=== PATIENT | male | born 1940 | race Caucasian/White ===

== ENCOUNTER → 2018-11-01 13:43 | Outpatient (CLI) | payer MEDICARE, OTHER | END | disposition home or self-care (01) | LOC: D.RAD 13:43 → D.RT 15:30 | PROVIDERS: ATTEND Internal Medicine Pulmonary Disease | DX: J44.9 Chronic obstructive pulmonary disease, unspecified (principal) ==

== ENCOUNTER → 2018-11-24 12:57 | Outpatient (CLI) | payer MEDICARE, OTHER ==
--- NOTE | 2018-11-28 13:03 | EC ---
PATIENT:BASHIR BAEZ DATE OF SERVICE: 11/24/18 SEX: M MEDICAL RECORD: [id number] DATE OF : 42 LOCATION:[facility] AGE OF PATIENT: 78 ADMISSION DATE: 11/24/18 REFERRING PHYSICIAN: INTERPRETING PHYSICIAN: HODAN MORALES MD ECHOCARDIOGRAM REPORT ECHO CHARGES 4 ECHO COMPLETE Date: 11/24/18 CLINICAL DIAGNOSIS: MITRAL REGURG ECHOCARDIOGRAPHIC MEASUREMENTS (adult normal given) AC root (d.<3.7cm) 4.7 cm LV Septum d (<1.2 cm> 1.7 cm Valve Excursion 2.2 cm LV Septum (systole) 1.8 cm Left Atria (s.<4.0cm> 3.9 cm LVPW d(<1.2cm) 1.7 cm RV (d.<2.3cm) 4.7 cm LVPW (sytole) 2.0 cm LV diastole(<5.6CM) 5.4 cm MV E-F(>70mm/sec) cm LV systole 3.9 cm LVOT Diameter 2.3 cm MV exc.(>10mm) 0.80 cm Est.ejection fraction (50-75%) % DOPPLER: LVIT cm/sec A 40.0 cm/sec E 37.0 cm/sec LA cm/sec RVSP 30 mmHg LVOT 97 cm/sec AOP1/2T m/s Asc. Ao 122 cm/sec RVOT cm/sec RA cm/sec PA cm/sec AV Gradient Peak 6.00 mmHg AV Mean 3.27 mmHg AV Area 3.8 cm MV Gradient Peak 3.84 mmHg MV Mean 1.19 mmHg MV Area cm COMMENTS: Stitch Bonder Machine Operator Helper: 2 ANKIT ROLLINS Shaper Hand: 3 Dr. Rios TAPE# PACS Pericardial Effusion N DATE OF SERVICE: Adequate 2D, color flow and spectral Doppler, M-mode. LVH is present. LV internal dimensions are normal. Wall motion is normal. EF is greater than or equal to 55%. Aortic valve is tricuspid. No evidence of stenosis by Doppler interrogation. Left atrium is normal at 3.9 cm. Mitral valve shows no prolapse. Trace MR. Right-sided chambers are grossly normal. Mild TR. ECHOCARDIOGRAM REPORT [id number] BASHIR BAEZ TRANSINT:[id number] Voice Confirmation ID: [id number] DOCUMENT ID: [id number] HODAN MORALES MD at 1303 CC: [id number] DICTATION DATE: 11/25/18 1033 GRAPHIC ART TECHNICIAN: 11/25/18 1120 DEP CLI 11/24/18 [facility] [address] [place] [address]
== END | disposition home or self-care (01) ==
LOC: D.HCCECHO 09:27 → D.HCCARDIO 13:00
PROVIDERS: ATTEND Internal Medicine Interventional Cardiology
DX: R09.89 Other specified symptoms and signs involving the circulatory and respiratory systems (principal)

== ENCOUNTER 2020-05-12 09:50 | Outpatient (CLI) | payer MEDICARE, OTHER ==
[~2020-05-12] VITALS: Ht 190.5 cm; Wt 94.5 kg
[~2020-05-12 09:50] MED LIST: ASCORBIC ACID500 MG PO; BUSPAR 15 MG TA15 MG PO; CELEXA40 MG PO; FLOMAX0.4 MG PO; MELATONIN 3 MG1 TAB PO; NITROQUICK0.4 MG SL; PLAVIX75 MG PO; REMERON30 MG PO; SYMBICORT 16010.2 GM INH; TOPROL XL25 MG PO; TYLENOL ARTHRI650 MG PO; UROXATRAL10 MG PO
[2020-05-12] MEDS ORDERED: COZAAR25 MG PO (11:01)
[2020-05-12 11:12] VITALS: BP 149/94; Ht 190.5 cm; Wt 94.5 kg
--- NOTE | 2020-05-12 18:00 | NUR ---
PATIENT TOLERATING INFUSION WITHOUT NOTED SIDE EFFECTS. PATIENT WALKING IN HALLWAY, DENIES COMPLAINTS. RIGHT WRIST PIV INFUSING SODIUM BICARB IN NS SOLUTION AT 95 CC/HR. PATIENT EXPRESSES IMPATIENCE TO BE DISCHARGED HOME
--- NOTE | 2020-05-12 18:30 | NUR ---
INFUSION COMPLETE PER ORDERS, RIGHT WRIST PIV DC'D WITH TIP INTACT. DISCHARGE INSTRUCTIONS REVIEWED WITH PATIENT, DISCHARGED HOME VIA WHEELCHAIR TO PRIVATE VEHICLE WITH SPOUSE AT 1834
== END 2020-05-12 18:34 | disposition home or self-care (01) ==
LOC: D.OPS 09:50 → D.CT 11:00 → D.OPS 18:34
PROVIDERS: ATTEND Thoracic Surgery (Cardiothoracic Vascular Surgery)
DX: I71.4 Abdominal aortic aneurysm, without rupture (principal)

== ENCOUNTER 2020-05-20 08:00 | Outpatient (CLI) | payer MEDICARE, OTHER ==
[2020-05-12 11:12] VITALS: BMI 26.0
[~2020-05-20 08:00] MED LIST changes: +COZAAR25 MG PO
[2020-05-20] MEDS ORDERED: BAYER CHEWABLE81 MG PO (14:48)
--- NOTE | 2020-05-20 15:06 | NUR ---
PATIENT REFUSED NIF, VC, IS. PT HEARD NURSE STATE IT WASN'T ORDERED.
[2020-05-20 16:11] LABS: HEMATOCRIT 36.9 % (42.0-54.0); HEMOGLOBIN 11.7 g/dL (13.5-17.5); LYMPHOCYTE ABS# 4.21 10x3/uL (1.32-3.57); MCH 28.4 pg (26.0-34.0); MCHC 31.7 g/dL (31.0-37.0); MCV 89.6 fL (80.0-100.0); MEAN PLATELET VOLUME 9.9 fL (7.4-10.4); NEUTROPHIL ABS# 2.74 10x3/uL (1.78-5.38); RBC 4.12 10x6/uL (4.20-6.10); RDW 19.3 % (11.5-14.5); WBC 8.4 10x3/uL (4.8-10.8)
[2020-05-20 16:16] LABS: PLATELET COUNT 253 10x3/uL (130-400)
[2020-05-20 16:20] LABS: APTT 30.5 SECONDS (22.8-39.4); INR 1.15 (0.85-1.17); PROTIME 13.6 SECONDS (11.6-15.0)
[2020-05-20 16:30] LABS: ALBUMIN 3.3 g/dL (3.4-5.0); ANION GAP 12.5 mmol/L (8-16); BILIRUBIN - TOTAL 0.28 mg/dL (0.2-1.3); CALCIUM 8.7 mg/dL (8.5-10.1); CARBON DIOXIDE 25.3 mmol/L (21.0-32.0); CREATININE - SERUM 2.2 mg/dL (0.6-1.3); POTASSIUM - SERUM 4.8 mmol/L (3.5-5.1); PROTEIN - SERUM 7.7 g/dL (6.4-8.2)
[2020-05-20 16:51] LABS: BILIRUBIN NEGATIVE (NEGATIVE); KETONE NEGATIVE (NEGATIVE); NITRITE NEGATIVE (NEGATIVE); UROBILINOGEN NORMAL mg/dL (< 2)
[2020-05-20 18:18] LABS: BASOPHILS 1 % (0-2); EOSINOPHILS 7 % (0-7); LYMPHOCYTES 44 % (15-50); MONOCYTES 13 % (2-11); NEUTROPHILS 35 % (40-80); PLATELET ESTIMATE NORMAL
== END 2020-05-20 08:01 | disposition home or self-care (01) ==
LOC: D.PAN 08:00 → EDSTATUS 05-22 11:30 → D.SDCHOLD 05-22 11:30
PROVIDERS: ATTEND Thoracic Surgery (Cardiothoracic Vascular Surgery)
DX: I71.4 Abdominal aortic aneurysm, without rupture (principal)

== ENCOUNTER → 2020-05-28 10:27 | Outpatient (CLI) | payer MEDICARE, OTHER ==
[2020-05-12 11:12] VITALS: BMI 26.0
[~2020-05-28 10:27] MED LIST changes: +BAYER CHEWABLE81 MG PO
== END | disposition home or self-care (01) ==
LOC: D.LAB 10:27
PROVIDERS: ATTEND Thoracic Surgery (Cardiothoracic Vascular Surgery)
DX: I71.4 Abdominal aortic aneurysm, without rupture (principal)

== ENCOUNTER 2020-07-23 08:31 | Inpatient (IN) | payer MEDICARE, OTHER ==
[~2020-07-23] VITALS: Ht 190.5 cm; Wt 95.8 kg
[2020-07-23] VITALS (20 sets, daily range): BP systolic 112–132; BP diastolic 68–83; BMI 24.4
--- NOTE | 2020-07-23 10:15 | NUR ---
PATIENT ARRVIED VIA WHEELCHAIR TO ROOM FROM ADMITTING, PLACED IN GOWN, VSS. HEAD TO TOE ASSSESSMENT COMPLETED. IV TO LEFT FA X 1 ATTEMPT 20 GA, WITH NS AT 100 ML/HR STARTED INFUSING.
--- NOTE | 2020-07-23 13:43 | NUR ---
LAB AT ROOM, LABS DRAWN AND SENT TO LAB. DR. DAUGHERTY AT ROOM.
--- NOTE | 2020-07-23 13:49 | NUR ---
DR. WILKINS NOTIFIED OF CONSULT. STATES WILL SEE THIS AFTERNOON.
[2020-07-23] MEDS ORDERED: PROCARDIA10 MG PO (13:54)
[2020-07-23 13:55] LABS: BASOPHILS 0.6 % (0-2); EOSINOPHILS 4.2 % (0-7); HEMATOCRIT 39.1 % (42.0-54.0); HEMOGLOBIN 12.4 g/dL (13.5-17.5); IMMATURE GRANULOCYTES 0.1 % (0-5); LYMPHOCYTES 47.5 % (15-50); MCHC 31.7 g/dL (31.0-37.0); MCV 94.4 fL (80.0-100.0); MEAN PLATELET VOLUME 10.2 fL (7.4-10.4); MONOCYTES 10.4 % (2-11); NEUTROPHIL ABS# 2.59 10x3/uL (1.78-5.38); NEUTROPHILS 37.2 % (40-80); PLATELET COUNT 259 10x3/uL (130-400); RBC 4.14 10x6/uL (4.20-6.10); RDW 19.9 % (11.5-14.5)
[2020-07-23] MEDS ORDERED: ZYRTEC10 MG PO (13:55)
[2020-07-23 14:03] LABS: APTT 31.4 SECONDS (22.8-39.4); INR 1.15 (0.85-1.17); PROTIME 13.7 SECONDS (11.6-15.0)
[2020-07-23 14:08] LABS: ALBUMIN 2.9 g/dL (3.4-5.0); ANION GAP 11.8 mmol/L (8-16); BILIRUBIN - TOTAL 0.2 mg/dL (0.2-1.3); CALCIUM 8.9 mg/dL (8.5-10.1); CARBON DIOXIDE 23.2 mmol/L (21.0-32.0); CREATININE - SERUM 2.1 mg/dL (0.6-1.3); PROTEIN - SERUM 7.2 g/dL (6.4-8.2)
[2020-07-23 14:33] LABS: BILIRUBIN NEGATIVE (NEGATIVE); KETONE NEGATIVE (NEGATIVE); NITRITE NEGATIVE (NEGATIVE); UROBILINOGEN NORMAL mg/dL (< 2)
--- NOTE | 2020-07-23 14:50 | NUR ---
DR. WILKINS AT ROOM TO EXAMINE PATIENT.
--- NOTE | 2020-07-23 15:00 | NUR ---
REASSESSMENT COMPLETED. VSS. NO NEEDS AT THIS TIME.
--- NOTE | 2020-07-23 16:49 | NUR ---
BLADDER SCAN INDICATED RESIDUAL OF 215 ML.
--- NOTE | 2020-07-23 17:15 | NUR ---
PATIENT VOIDS DECENT AMOUNT OF URINE WITH GLADIS RN BUT NO MEASURED, REPEAT BLADDER SCAN INDICATES 640 ML OF URINE IN BLADDER.
--- NOTE | 2020-07-23 18:14 | NUR ---
DR. WILKINS ORDERS CMP FOR 0300 AND WANTS NIGHT NURSE TO CALL WITH RESULTS.
[2020-07-24] VITALS (49 sets, daily range): BP systolic 19–171; BP diastolic 41–89; Ht 190.5 cm; Wt 95.8 kg
[2020-07-24 05:09] LABS: ALBUMIN 2.7 g/dL (3.4-5.0); ANION GAP 13.3 mmol/L (8-16); BILIRUBIN - TOTAL 0.31 mg/dL (0.2-1.3); CALCIUM 8.2 mg/dL (8.5-10.1); CARBON DIOXIDE 21.3 mmol/L (21.0-32.0); CREATININE - SERUM 1.8 mg/dL (0.6-1.3); POTASSIUM - SERUM 4.6 mmol/L (3.5-5.1); PROTEIN - SERUM 6.6 g/dL (6.4-8.2)
--- NOTE | 2020-07-24 08:24 | NUR ---
Pt went to surgery around 0800, no distress noted. Pt was preop'd and denies any needs.
[2020-07-24 14:14] LABS: BASOPHILS 0.2 % (0-2); EOSINOPHILS 0.9 % (0-7); HEMATOCRIT 32.1 % (42.0-54.0); IMMATURE GRANULOCYTES 0.3 % (0-5); LYMPHOCYTE ABS# 4.33 10x3/uL (1.32-3.57); LYMPHOCYTES 28.2 % (15-50); MCH 29.6 pg (26.0-34.0); MCHC 30.8 g/dL (31.0-37.0); MCV 95.8 fL (80.0-100.0); MEAN PLATELET VOLUME 10.4 fL (7.4-10.4); MONOCYTES 9.1 % (2-11); NEUTROPHIL ABS# 9.41 10x3/uL (1.78-5.38); NEUTROPHILS 61.3 % (40-80); RBC 3.35 10x6/uL (4.20-6.10); RDW 19.7 % (11.5-14.5)
[2020-07-24 14:20] LABS: HEMOGLOBIN 9.9 g/dL (13.5-17.5); PLATELET COUNT 186 10x3/uL (130-400); WBC 15.4 10x3/uL (4.8-10.8)
[2020-07-24 14:27] LABS: ALBUMIN 2.3 g/dL (3.4-5.0); ANION GAP 10.6 mmol/L (8-16); BILIRUBIN - TOTAL 0.39 mg/dL (0.2-1.3); CALCIUM 7.6 mg/dL (8.5-10.1); CREATININE - SERUM 1.9 mg/dL (0.6-1.3); MAGNESIUM - SERUM 1.7 mg/dL (1.8-2.4); POTASSIUM - SERUM 5.6 mmol/L (3.5-5.1); PROTEIN - SERUM 5.6 g/dL (6.4-8.2)
--- NOTE | 2020-07-24 16:42 | NUR ---
Pt returned from surgery around 1400. The Pt is resting in bed with at bedside at this time. Dr. Lloyd notified of pt lab values and Dr. Lopez was notified of consult.
--- NOTE | 2020-07-24 19:00 | NUR ---
BEDSIDE REPORT COMPLETED WITH OFF GOING NURSE. PT IS RESTING IN BED WITH EYES CLOSED AT THIS TIME. SHIFT ASSESSMENT COMPLETED AND PREVIOUSLY ORDERED BMP DRAWN. AWAITING LAB RESULTS. WILL CONTINUE TO MONITOR.
[2020-07-24 19:42] LABS: ANION GAP 14.1 mmol/L (8-16); CALCIUM 7.6 mg/dL (8.5-10.1); CARBON DIOXIDE 21.1 mmol/L (21.0-32.0); CREATININE - SERUM 1.9 mg/dL (0.6-1.3); POTASSIUM - SERUM 6.2 mmol/L (3.5-5.1)
--- NOTE | 2020-07-24 20:45 | NUR ---
CRITICAL LAB RESULT OF 6.[address] WILKINS. ORDERS RECEIVED. WILL CONTINUE TO MONITOR.
[2020-07-25] VITALS (35 sets, daily range): BP systolic 94–133; BP diastolic 37–67
[2020-07-25 01:07] LABS: ANION GAP 12.5 mmol/L (8-16); CALCIUM 7.5 mg/dL (8.5-10.1); CREATININE - SERUM 1.9 mg/dL (0.6-1.3); POTASSIUM - SERUM 5.5 mmol/L (3.5-5.1)
[2020-07-25 04:30] LABS: HEMATOCRIT 29.3 % (42.0-54.0); HEMOGLOBIN 9.3 g/dL (13.5-17.5); MCH 29.6 pg (26.0-34.0); MCHC 31.7 g/dL (31.0-37.0); MEAN PLATELET VOLUME 11.1 fL (7.4-10.4); RBC 3.14 10x6/uL (4.20-6.10); RDW 19.4 % (11.5-14.5)
[2020-07-25 04:40] LABS: ANION GAP 12.2 mmol/L (8-16); CALCIUM 7.4 mg/dL (8.5-10.1); CARBON DIOXIDE 24.6 mmol/L (21.0-32.0); POTASSIUM - SERUM 4.8 mmol/L (3.5-5.1)
[2020-07-25 04:41] LABS: MCV 93.3 fL (80.0-100.0); WBC 10.1 10x3/uL (4.8-10.8)
--- NOTE | 2020-07-25 10:49 | OP ---
PATIENT NAME: BASHIR BAEZ MEDICAL RECORD: [id number] :42 LOCATION:[facility] ADMISSION DATE:07/23/20 SURGEON: EFRAIN YOUNGBLOOD MD DATE OF OPERATION: 07/24/2020 SURGEON: Efrain Youngblood MD PROCEDURE PERFORMED: Insertion of bifurcated endograft for repair of enlarging abdominal aortic aneurysm, insertion of bilateral iliac extensions, insertion of right iliac extension, aortogram, percutaneous approaches, bilateral iliac angiogram. PREOPERATIVE DIAGNOSIS: Abdominal aortic aneurysm. POSTOPERATIVE DIAGNOSIS: Abdominal aortic aneurysm. ANESTHESIA: General endotracheal anesthesia. ESTIMATED BLOOD LOSS: 150 mL, not enough for Cell Saver. SPECIMENS: None. COMPLICATIONS: Hyperkalemia. CONDITION: Stable. DISPOSITION: ICU. OPERATIVE FINDINGS: Good position of the endograft with no endoleak after repair, the patient had large and severely tortuous iliacs particularly on the left. PROCEDURE IN DETAIL: Percutaneous access bilateral femorals using ultrasound guidance, placement of ProGlides for closure. Angiogram performed and heparin was given. The 16-Japanese right sheath and on the left a 13-Japanese sheath with some hemorrhage around controlled with direct pressure. Main body placed and deployed, and after balloon dilatation the polymer was deployed. Contralateral limb access was obtained with the 0.014 and 0.018 wire and stiff wire was placed. Bilateral limb extensions 28 x 160 were placed. A 12 x 40 balloons in both limbs proximally were performed. Pigtail was placed and the final run revealed no endoleak. Due to the tortuosity on the right, an additional 45 mm limb was deployed down to the common iliac bifurcation. On the left side, ProGlides were used to close the vessel, but with continued bleeding. While the wire was still in place, a third ProGlide was deployed and hemostasis was achieved. A final run was performed and there was no extravasation nor any occlusion of the left femoral. On the right side, ProGlides were used to close the wound. It still had some hemorrhage, but attempt to place a ProGlide for a third ProGlide would not go through the closure nor would an Angio-Seal, therefore direct pressure was held for a total of 10 minutes. Good Doppler signals, both dorsalis pedis and right posterior tibial. Eventually, left posterior tibial also returned strongly after the patient was rewarmed fully. The patient to PACU, stable. TRANSINT:[id number] Voice Confirmation ID: [id number] DOCUMENT ID: [id number] OPERATIVE REPORT [id number] BASHIR BAEZ, EFRAIN Harrison MD at 1049 CC: ZELALEM WILKINS DO and HODAN MORALES MD [id number] DICTATION DATE: 07/24/20 1425 CHIEF OF VITAL STATISTICS: 07/24/20 1700 ADM IN [place] [id number] [place] [id number]
--- NOTE | 2020-07-25 12:23 | NUR ---
Nutrition Follow-up: POD 1 AAA repair. Pt reports good appetite. Denies N/V, chewing/swallowing difficulties. -BM; +flatus. Diet: Renal Wt: 210.5# Last BM: 07/22 Labs noted: K+ 4.8, BUN 32, Cre 2.0, GFR 34, Ca 7.4 Meds noted: Senokot, Colace, Protonix, NS @ 75 -Encourage PO intake and honor food preferences within diet restrictions. -RD follow-up: 07/28
--- NOTE | 2020-07-25 13:23 | NUR ---
1100: R RADIAL ARTERIAL LINE DC'D. MANUAL PRESSURE HELD X 3 MIN. SITE DRESSED WITH 2X2 AND TEGADERM. 1320: R IJ DC'D. SITE DRESSED WITH 2X2 AND TEGADERM.
--- NOTE | 2020-07-25 19:45 | NUR ---
REC'D PT RESTING IN BED READING, LEFT FOREARM PIV PATENT WITH DRIED BLOODY DRAINAGE NOTED, RIGHT AND LEFT GROIN INCISIONS DRSG CDI, PPP BY DOPPLER, PT DENIES PAIN, REQUESTS SOMETHING TO HELP HIM SLEEP, VSS, WILL MONITOR FOR CHANGES.
--- NOTE | 2020-07-25 21:30 | NUR ---
EVENING MEDS GIVEN, DENIES FURTHER NEEDS.
--- NOTE | 2020-07-25 22:00 | NUR ---
Kaylyn GUERRERO PAGED REGARDING PTS REQUEST FOR SOMETHING TO SLEEP, 3MG MELATONIN ORDERED AT THIS TIME
[2020-07-26] VITALS (11 sets, daily range): BP systolic 94–143; BP diastolic 41–69
--- NOTE | 2020-07-26 00:32 | NUR ---
PT ASSISTED UP TO SIDE OF BED TO TRY AND VOID, CALL LIGHT IN REACH. 0050 - PT REMAINS UNABLE TO VOID, STATES "I USUALLY GO VERY WELL IN THE MORNING", ASSISTED PT TO STAND AT BS TO VOID.
--- NOTE | 2020-07-26 01:15 | NUR ---
PT ASSISTED BACK TO BED, BLADDER SCANNED TO HAVE 593CC OF URINE, PT REQUESTS TO TRY A LITTLE LATER CLOSER TO MORNING.
[2020-07-26 04:09] LABS: HEMATOCRIT 25.6 % (42.0-54.0); HEMOGLOBIN 8.3 g/dL (13.5-17.5); MCH 30.3 pg (26.0-34.0); MCHC 32.4 g/dL (31.0-37.0); MCV 93.4 fL (80.0-100.0); MEAN PLATELET VOLUME 9.8 fL (7.4-10.4); RBC 2.74 10x6/uL (4.20-6.10); RDW 19.1 % (11.5-14.5); WBC 10.2 10x3/uL (4.8-10.8)
[2020-07-26 04:12] LABS: PLT FUNCT.(P2Y12) PLAVIX 87 PRU (194-418)
[2020-07-26 04:15] LABS: ANION GAP 12.5 mmol/L (8-16); CALCIUM 8.2 mg/dL (8.5-10.1); CARBON DIOXIDE 23.8 mmol/L (21.0-32.0); POTASSIUM - SERUM 4.3 mmol/L (3.5-5.1)
--- NOTE | 2020-07-26 04:30 | NUR ---
DR. WILKINS ON UNIT, SPEAKING WITH PATIENT, PT ASSISTED UP TO SIDE OF BED TO ATTEMPT TO VOID. 0445 - PT ASSISTED INTO BATHROOM AND FAUCET TURNED ON PER REQUEST. 0505 - PT RETURNED TO BED, BLADDER SCANNED TO SHOW 921ML AT THIS TIME, DR. WILKINS PAGED.
--- NOTE | 2020-07-26 05:30 | NUR ---
IN AND OUT CATH PERFORMED WITH 900CC OR URINE NOTED, DR. WILKINS CAME BACK BY TO SPEAK WITH PATIENT, PT DENIES NEEDS.
--- NOTE | 2020-07-26 11:22 | NUR ---
Sarita MATAMOROS DC'Kia. FOLLOW UP VISITS AND DISCHARGE INSTRUCTIONS REVIEWED WITH AND PATIENT.
--- NOTE | 2020-07-26 11:35 | NUR ---
1133: DISCHARGED HOME WITH . ESCORTED TO VEHICLE VIA WHEELCHAIR.
--- NOTE | 2020-07-27 19:00 | MORECARE ---
CASE MANAGEMENT DISCHARGE SUMMARY PATIENT: BASHIR BAEZ UNIT: [id number] ADM DATE: 07/23/20 AGE: 80 : 41 SEX: M ROOM/BED: [facility] AUTHOR: DARNELL,DOC PHYSICIAN: REFERRING PHYSICIAN: YUNIEL YOUNGBLOOD MD DATE OF SERVICE: 07/27/20 Case Management Discharge Planning Summary COMMENTS ENTERED DATE: 07/27/20 18:56 CT COMMENT TYPE: Discharge Planning REVIEWER: Stephanie Decker CM met with patient and spouse. Patient states that they live together in their home. He states that he has a cane and walker if he needs it. He states that he feels he can discharge home safely without needs. His will transport him home. D/C IMM signed DCP REVIEW SUMMARY ANTICIPATED D/C DATE: EXPECTED LOS : CASE STATUS: DCP Initiated INITIAL REVIEW: 07/23/2020 INITIAL REVIEWER: Stephanie Decker FINAL DISCHARGE DISPOSITION: 01 : Home or Self Care (Routine Discharge) FINAL REVIEWER: Stephanie Decker FINAL REVIEW DATE: 07/26/2020 DCP Focus Questions & Answers CTP Evaluation QUESTION: ANSWER Patient gives permission to discuss discharge plans with: (name, relationship and number) : TIA BAEZ [phone] Patient's ability to cope with chronic illness : d. No chronic illness Patient's current cognitive status: : *Oriented to person, place, situation, time and present Patient and/or caregiver agree upon recommended discharge plan? : Yes Functional screen assessment: : Basic needs can adequately be met by self Does the patient have the ability to pay for or attain post discharge needs / services? : Yes Living Arrangements: : Home with Spouse/Significant Other Is there a likelihood that the patient will require additional services to return to the preadmission environment? : No Baseline cognitive status: : *Oriented to person, place, situation, time and present Patient with capacity for self-care or can be cared for in same environment as prior to hospitalization? : Yes Physical environment modification needed / anticipated for discharge: : No Medication Management: : Patient states they do have transportation to scrap picker medications Pharmacy name(s): : [facility] Planned post hospital services available for patient? : N/A Does Patient have transportation to get home and to follow-up medical appointments when discharged from the hospital? : Yes Planned post hospital services covered by insurance plan? : N/A Would patient like to participate in any Care Coordination programs (if applicable): : Not applicable Does the patient have electricity at home? : Yes Does the patient have running water in their house? : Yes Equipment in use: : Cane - Quad Equipment in use: : Walker - Rolling Mental health screen: : No mental health history DCP Re-evaluation QUESTION: ANSWER Would patient like to participate in any Care Coordination programs (if applicable): : Not applicable PATIENT: BASHIR BAEZ ENCOUNTER: [id number] MEDICAL RECORD#: [id number] ADMISSION DATE: 07/23/2020 DISCHARGE DATE: 07/26/2020 ATTENDING MD: YUNIEL RAMIREZ : AGE: 80 MARITAL STATUS: M DC PLAN ID: [id number] FACILITY: [facility] PRINTED ON: 07/27/20 19:00 CT All edits/amendments must be made on the electronic document DICTATION DATE: 07/27/201899 KINESEOLOGIST: CAREN 07/27/201899 RPT#: [id number] DC DATE:07/26/20 STATUS: DIS IN [facility] [address] [place] [address] END OF REPORT
== END 2020-07-26 11:33 | disposition home or self-care (01) | DRG 271 ==
LOC: D.CVICU 10:00 → D.SDCHOLD 07-24 07:30 → D.CVICU 07-26 11:33
PROVIDERS: Internal Medicine; ADMIT Thoracic Surgery (Cardiothoracic Vascular Surgery); ATTEND Thoracic Surgery (Cardiothoracic Vascular Surgery)
PROC: 04V00EZ Restriction of Abdominal Aorta with Branched or Fenestrated Intraluminal Device, One or Two Arteries, Open Approach (ICD-10-PCS; principal; 2020-07-24 07:30)
DX: I71.4 Abdominal aortic aneurysm, without rupture (principal); N17.9 Acute kidney failure, unspecified; J98.11 Atelectasis; N18.4 Chronic kidney disease, stage 4 (severe); I12.9 Hypertensive chronic kidney disease with stage 1 through stage 4 chronic kidney disease, or unspecified chronic kidney disease; E87.5 Hyperkalemia; E78.5 Hyperlipidemia, unspecified; J44.9 Chronic obstructive pulmonary disease, unspecified; K21.9 Gastro-esophageal reflux disease without esophagitis; I25.10 Atherosclerotic heart disease of native coronary artery without angina pectoris; F41.8 Other specified anxiety disorders; G62.9 Polyneuropathy, unspecified; N40.1 Benign prostatic hyperplasia with lower urinary tract symptoms; R33.9 Retention of urine, unspecified; D64.9 Anemia, unspecified

== ENCOUNTER → 2020-08-27 08:46 | Outpatient (CLI) | payer MEDICARE, OTHER ==
[2020-07-24 10:24] VITALS: BMI 24.3
[~2020-08-27 08:46] MED LIST changes: +PROCARDIA10 MG PO; +ZYRTEC10 MG PO
== END | disposition home or self-care (01) ==
LOC: D.CT 08:46
PROVIDERS: ATTEND Thoracic Surgery (Cardiothoracic Vascular Surgery)
DX: I71.4 Abdominal aortic aneurysm, without rupture (principal)